=== PATIENT | female | born 1960 ===

== ENCOUNTER 2018-06-26 21:33 | Emergency (ER) | payer BC ==
[2018-06-26 22:06] VITALS: RESP 18
[2018-06-26] MEDS ORDERED: Alum-Mag Hydrox-Simethicone Susp (30 mL) PO STA (22:43)
[2018-06-26] MEDS ORDERED: Belladonna-Phenobarbital PO STA (22:45)
--- NOTE | 2018-06-26 23:00 | C.PDOC ---
History Of Present Illness 58 year old female presents to the ED for evaluation of a pressure-like sensation behind her eyes, cheeks, forehead and the top of her head which began around 2-3 weeks ago. Patient also reports sore throat and generalized body aches. She complains of pain to her epigastric region that occurs when she lays down. She states the burning sensation radiates up her throat. Patient was evaluated by her PMD and and was given antibiotics, which she took once a day for five days. Patient did not get a flu swab. She denies fever, chills, cough, shortness of breath, vision change or vomiting. Time Seen by Provider: 06/26/18 22:15 Chief Complaint (Nursing): Headache History Per: Patient History/Exam Limitations: no limitations Onset/Duration Of Symptoms: Days Past Medical History Reviewed: Historical Data, Nursing Documentation, Vital Signs Vital Signs: Last Vital Signs Temp 97.6 F 06/26/18 22:01 Pulse 74 06/26/18 22:01 Resp 18 06/26/18 22:01 BP 113/73 06/26/18 22:01 Pulse Ox 98 06/26/18 22:01 - Medical History PMH: No Chronic Diseases Surgical History: Cholecystectomy Family History: States: Unknown Family Hx - Social History Hx Alcohol Use: No Hx Substance Use: No - Immunization History Hx Tetanus Toxoid Vaccination: No Hx Influenza Vaccination: No Hx Pneumococcal Vaccination: No Review Of Systems Constitutional: Negative for: Fever, Chills ENT: Positive for: Throat Pain Respiratory: Negative for: Cough, Shortness of Breath Musculoskeletal: Positive for: Other (generalized body aches ) Physical Exam - Physical Exam Appears: Non-toxic, No Acute Distress Skin: Normal Color, Warm, Dry Head: Tenderness (to percussion over maxillary and frontal sinuses) Eye(s): bilateral: Normal Inspection Ear(s): Bilateral: Normal Nose: Other (swelling to bilateral turbinates, right>left ) Oral Mucosa: Moist Throat: Normal, No Erythema, No Exudate Neck: Supple Chest: Symmetrical, No Deformity, No Tenderness Cardiovascular: Rhythm Regular, No Murmur Respiratory: Normal Breath Sounds, No Rales, No Rhonchi, No Wheezing Gastrointestinal/Abdominal: Soft, Tenderness (mild, epigastric ), No Guarding, No Rebound Extremity: Normal ROM, Capillary Refill (less than 2 seconds ) Neurological/Psych: Oriented x3, Normal Speech, Normal Cognition ED Course And Treatment O2 Sat by Pulse Oximetry: 98 (on RA) Pulse Ox Interpretation: Normal Medical Decision Making Medical Decision Making: Progress: Rapid flu swab ordered and reviewed. PO, Maalox PO, Sudafed PO given. Disposition Counseled Patient/Family Regarding: Studies Performed, Diagnosis, Need For Follo wup - Disposition Disposition: HOME/ ROUTINE Disposition Time: 00:27 Condition: STABLE Instructions: Acid Reflux (Gastroesophageal Reflux Disease), Adult (DC), Sinus Headache (DC), Muscle and Bone Pain (DC) Forms: [employer] (Danish), General Discharge Instructions - POA Present On Arrival: None - Clinical Impression Clinical Impression: Sinus headache, Abdominal pain, Gastric reflux, Generalized body aches - Scribe Statement The provider has reviewed the documentation as recorded by the Scribe (Susie Molina) Provider Attestation: All medical record entries made by the Scribe were at my direction and personally dictated by me. I have reviewed the chart and agree that the record accurately reflects my personal performance of the history, physical exam, medical decision making, and the department course for this patient. I have also personally directed, reviewed, and agree with the discharge instructions and disposition.
[2018-06-26] MEDS ORDERED: Alum-Mag Hydrox-Simethicone Susp (30 mL) ONE (23:04)
[2018-06-26] MEDS ORDERED: Belladonna-Phenobarbital ONE (23:04)
[2018-06-27 02:52] VITALS: BP 118/75; PULSE 70; TEMP 98.2; O2SAT 100
== END 2018-06-27 01:01 | disposition home or self-care (01) ==
LOC: C.ER 21:33
DX: R51 Headache (principal); K21.9 Gastro-esophageal reflux disease without esophagitis; R10.13 Epigastric pain